=== PATIENT | female | born 1985 | race Caucasian/White ===

== ENCOUNTER 2017-06-14 08:16 | Emergency (ER) | payer MEDICAID ==
[~2017-06-14] VITALS: Ht 167.6 cm; Wt 127.0 kg
[2017-06-14 08:23] VITALS: Ht 167.6 cm; Wt 127.0 kg
[2017-06-14 08:45] LABS: microscopic required? NO
[2017-06-14 09:28] LABS: BASOPHIL % 0.3 % (0-2); PLATELET COUNT 173 x10^3mcL (130-400)
[2017-06-14 09:30] LABS: RED CELL DISTRIBUTION WIDTH 14.9 % (11.5-14.5)
[2017-06-14 09:44] LABS: CALCIUM 8.8 mg/dL (8.5-10.1); CARBON DIOXIDE 24.5 mmol/L (21-32); CHLORIDE SERUM 106 mmol/L (98-107); CREATININE SERUM 0.6 mg/dL (0.6-1.0); GFR1 > 60 mL/min; GLUCOSE SERUM 92 mg/dL (74-106); POTASSIUM SERUM 3.9 mmol/L (3.5-5.1); SODIUM SERUM 141 mmol/L (136-145)
[2017-06-14 09:48] LABS: ALKALINE PHOSPHATASE 58 U/L (46-116); ALT/SGPT 46 U/L (14-59); AMYLASE 36 U/L (25-115); AST/SGOT 32 U/L (15-37); BILIRUBIN TOTAL 0.88 mg/dL (0.20-1.00); CHOLESTEROL 136 mg/dL (<200); HDL CHOLESTEROL 47 mg/dL (40-60); LIPASE 130 IU/L (73-393); TOTAL PROTEIN, SERUM 7.9 g/dL (6.4-8.2)
[2017-06-14 09:55] LABS: urine erythrocyte NEGATIVE (NEGATIVE)
[2017-06-14 10:59] VITALS: BP 142/91
== END 2017-06-14 10:59 | disposition left against medical advice (07) ==
LOC: ED 08:16
PROVIDERS: Emergency Medicine
DX: K80.20 Calculus of gallbladder without cholecystitis without obstruction (principal); E66.9 Obesity, unspecified; Z88.0 Allergy status to penicillin
CPT/HCPCS: 36415; 83880; J1885; Q0092

== ENCOUNTER 2018-04-24 17:09 | Emergency (ER) | payer MEDICAID ==
[~2018-04-24] VITALS: Ht 157.5 cm; Wt 127.5 kg
[2018-04-24 17:13] VITALS: BP 172/89; Ht 157.5 cm; Wt 127.5 kg
== END 2018-04-24 18:23 | disposition home or self-care (01) ==
LOC: ED 17:09
DX: K08.89 Other specified disorders of teeth and supporting structures (principal); R03.0 Elevated blood-pressure reading, without diagnosis of hypertension; Z88.0 Allergy status to penicillin